=== PATIENT | male | born 1990 | race Caucasian/White ===

== ENCOUNTER 2020-04-10 09:13 | Emergency (ER) | payer OTHER, MEDICAID, SELFPAY ==
[2020-04-10] VITALS (14 sets, daily range): BP systolic 116–139; BP diastolic 70–93; PULSE 72–108; RESP 16–18; TEMP 36.4; O2SAT 97–100; BMI 30.7
--- NOTE | 2020-04-10 09:35 | ED_ITS ---
HPI - General Adult General Chief complaint: Neuro Symptoms/Deficit Stated complaint: trouble staying awake/thinking Time Seen by Provider: 04/10/20 09:27 History of Present Illness HPI narrative: 29-year-old gentleman history of stomach cancer currently being treated for this with Aceruda and has 5 more weeks of treatment to go. He was supposed to go to his cancer treatment this morning at 8:15 a.m. however when his mother woke up she found him slumped over the kitchen sink essentially passed out significantly difficult to arouse and she reports that he just seems he is a bit off notes that he has not been sleeping well significantly more fatigued. Patient is able to give a completely coherent history moving all extremities with normal speech fluency. He does note increased lower extremity edema, multiple bruises in various stages of healing all over his body. No fevers, cough, chills, chest pain, abdominal pain. Notes that he did have quite a bit of blood in his stool which led to his eventual stomach cancer diagnosis. Notes over the last number of days he has had increasingly black stool but had not really thought anything of it. Of note he has an area on the dorsum of the right wrist that is slightly red and warm from a prior IV start site. He states that it has improved significantly over the last couple of days and is not tender nor fluctuant with palpation today Related Data Previous Rx's Medication Instructions Recorded Spacer: Inhaler Spacer Device applic #1 08/13/17 albuterol sulfate [Ventolin HFA] 0 puff INH Q4HP PRN #1 ea 08/13/17 Allergies Allergy/AdvReac Type Severity Reaction Status Date / Time Penicillins [PENICILLINS] Allergy Unknown Unverified 10/20/17 11:53 Review of Systems Review of Systems Narrative: Pertinent positive and negative findings as per HPI Remainder of review of systems is otherwise unremarkable for ENT: No sore throat, neck pain, ear pain GI: Nausea, vomiting, diarrhea, : Dysuria, hematuria, flank pain MS: Muscle weakness, numbness, joint swelling or warmth Skin: Rashes, nonhealing lesions Patient History Medical History (Updated 04/10/20 @ 14:09 by Adele Danielle MD) Stomach cancer (Acute) Exam Narrative Exam Narrative: General: Healthy appearing, in no acute distress. Able to give a complete and coherent history. Well-nourished well-developed HEENT: Moist mucous membranes, normal sclera with reactive and midposition pupils, Neck: No JVD, supple, no adenopathy and no posterior tenderness Respiratory: Lungs are clear to auscultation, no wheezing no rales no rhonchi. Full and symmetrical air movement Cardiac: Tachycardic but Regular rate and rhythm no murmurs no bruits Abdomen: Soft nontender good bowel tones, no flank pain Skin: Warm and dry, slightly pale, small bruises in various stages of healing over his entire body Neurologic: Slightly slowed however Grossly neurologically intact with no obvious asymmetries or abnormalities Extremities: No trauma, bilateral lower extremity edema to the mid calf Psych: Cooperative, appropriate insight and affect Rectal exam: Minimal stool in the vault that that is there is guaiac negative Initial Vital Signs Initial Vital Signs: Vital Signs Pulse Oximetry 100 04/10/20 09:18 Course Orders Ordered: ED Orders 04/10/20 10:01 CT head/brain wo con Stat XR chest 1V Stat Blood Culture Stat Urinalysis and Microscopic Stat 04/10/20 10:49 XR chest for PICC 1V Stat 04/10/20 11:05 Complete Blood Count AUTO DIFF Stat Comprehensive Metabolic Panel Stat Lactate (Lactic Acid) Stat NT-proBNP (BNP-Adult 18+) Stat Procalcitonin Stat 04/10/20 11:12 Type and Screen Stat Vital Signs Vital signs: Vital Signs - 8 hr 04/10/20 09:18 04/10/20 09:19 04/10/20 09:30 Temperature Pulse Rate 107 H 94 H Respiratory Rate 18 Blood Pressure 133/93 H 133/77 Pulse Oximetry 100 99 97 04/10/20 09:43 04/10/20 10:00 04/10/20 10:30 Temperature 97.5 F L Pulse Rate 108 H 89 82 Respiratory Rate 16 18 Blood Pressure 133/93 H 139/71 Pulse Oximetry 99 04/10/20 11:00 04/10/20 11:08 04/10/20 11:30 Temperature Pulse Rate 91 H 100 H 76 Respiratory Rate Blood Pressure 124/70 Pulse Oximetry 100 98 04/10/20 12:00 04/10/20 12:30 04/10/20 13:00 Temperature Pulse Rate 72 79 81 Respiratory Rate Blood Pressure Pulse Oximetry 100 100 100 04/10/20 13:30 04/10/20 13:57 Temperature Pulse Rate 83 81 Respiratory Rate Blood Pressure 116/82 Pulse Oximetry 99 Medical Decision Making Lab Data Lab results reviewed: Yes I reviewed the patient's lab results. Result diagrams: 04/10/20 11:05 04/10/20 11:05 Labs: Lab Results 04/10/20 04/10/20 04/10/20 Range/Units 11:05 11:05 11:05 WBC 7.2 (4.5-11.0) X10^3/uL RBC 4.27 L (4.5-5.9) X10^6/uL Hgb 12.3 L (13.5-17.5) g/dL Hct 36.6 L (41-53) % MCV 85.6 (80-100) fL MCH 28.8 (26-34) PG MCHC 33.6 (30-36) % RDW 14.5 (11.6-14.8) % Plt Count 190 (150-400) X10^3/uL Neut % (Auto) 48.1 L (50-75) % Lymph % (Auto) 31.2 (25-40) % Lipscomb % (Auto) 11.5 (3-14) % Eos % (Auto) 8.5 H (2-4) % Baso % (Auto) 0.7 (0-2) % Neut # (Auto) 3500 (2837-4512) /uL Lymph # (Auto) 2300 (6700-1523) /uL Lipscomb # (Auto) 800 (0-900) /uL Eos # (Auto) 600 H (0-450) /uL Baso # (Auto) 100 (0-100) /uL Sodium 140 (137-145) mmol/L Potassium 3.3 L (3.4-5.1) mmol/L Chloride 103 (98-107) mmol/L Carbon Dioxide 30 (22-32) mmol/L BUN 14 (9-20) mg/dL Creatinine 0.70 (0.66-1.25) mg/dL Estimated GFR > 60.0 (>60) mL/min BUN/Creatinine Ratio 20.0 (6-22) Glucose 92 (70-100) mg/dL Lactate (0.7-2.1) mmol/L Calcium 8.9 (8.4-10.2) mg/dL Total Bilirubin 0.5 (0.2-1.3) mg/dL AST 27 (17-59) IU/L ALT 20 (<50) IU/L Alkaline Phosphatase 87 (38-126) U/L NT-Pro-B Natriuret Pep 44 (<125) pg/mL Total Protein 7.4 (6.3-8.2) g/dL Albumin 4.0 (3.5-5.0) g/dL Globulin 3.4 (1.7-4.1) g/dL Albumin/Globulin Ratio 1.2 (1.0-2.8) Procalcitonin < 0.05 (<0.5) ng/mL Blood Type Antibody Screen 04/10/20 04/10/20 Range/Units 11:05 11:12 WBC (4.5-11.0) X10^3/uL RBC (4.5-5.9) X10^6/uL Hgb (13.5-17.5) g/dL Hct (41-53) % MCV (80-100) fL MCH (26-34) PG MCHC (30-36) % RDW (11.6-14.8) % Plt Count (150-400) X10^3/uL Neut % (Auto) (50-75) % Lymph % (Auto) (25-40) % Lipscomb % (Auto) (3-14) % Eos % (Auto) (2-4) % Baso % (Auto) (0-2) % Neut # (Auto) (0367-5204) /uL Lymph # (Auto) (0692-4241) /uL Lipscomb # (Auto) (0-900) /uL Eos # (Auto) (0-450) /uL Baso # (Auto) (0-100) /uL Sodium (137-145) mmol/L Potassium (3.4-5.1) mmol/L Chloride (98-107) mmol/L Carbon Dioxide (22-32) mmol/L BUN (9-20) mg/dL Creatinine (0.66-1.25) mg/dL Estimated GFR (>60) mL/min BUN/Creatinine Ratio (6-22) Glucose (70-100) mg/dL Lactate 1.1 (0.7-2.1) mmol/L Calcium (8.4-10.2) mg/dL Total Bilirubin (0.2-1.3) mg/dL AST (17-59) IU/L ALT (<50) IU/L Alkaline Phosphatase (38-126) U/L NT-Pro-B Natriuret Pep (<125) pg/mL Total Protein (6.3-8.2) g/dL Albumin (3.5-5.0) g/dL Globulin (1.7-4.1) g/dL Albumin/Globulin Ratio (1.0-2.8) Procalcitonin (<0.5) ng/mL Blood Type O Positive Antibody Screen Negative Imaging Data Chest x-ray: Radiologist's Impression: FINDINGS: Surgical changes and devices: None. Lungs and pleura: Lungs are clear. No pleural effusions or pneumothorax. Mediastinum: Mediastinal contours appear normal. Heart size is normal. Bones and chest wall: No suspicious bony lesions. Overlying soft tissues appear unremarkable. IMPRESSION: No acute cardiopulmonary abnormality. Dictated by: Keven Heck M.D. on 04/10/2020 at 10:25 repeat post PICC line: FINDINGS: PICC was placed by the intravenous therapy team from the right side. Fluoroscopic spot film demonstrates the tip of PICC projecting to the area of inferior aspect of the superior vena cava, less than 1 cm above the cavoatrial junction. It is recorded that the PICC line was withdrawn 1 cm after this image was taken, before securing it in place. IMPRESSION: Tip of PICC projects to the area of inferior aspect of the superior vena cava. Dictated by: Michael Rogers M.D. on 04/10/2020 at 10:06 CT scan - head: Radiologist's Impression: FINDINGS: Image quality: Excellent. CSF spaces: Basal cisterns are patent. No extra-axial fluid collections. Ventricles are normal in size and shape. Brain: No midline shift. No acute intracranial hemorrhage or mass effect. Wilkins-white matter interface is normal. Skull and face: Calvarium and visualized facial bones are intact, without jimenez spicious lesions. Sinuses: Visualized sinuses and mastoids are clear. IMPRESSION: No acute intracranial process. Dictated by: Keven Heck M.D. on 04/10/2020 at 10:21 ECG Data Attestation: I personally reviewed and interpreted this ECG as follows: Interpretation: Sinus rhythm at a rate of 82 Normal intervals normal axis Mild lateral ST depression, leads V4 V5 V6 MDM Narrative Medical decision making narrative: Gentleman presents with excessive fatigue today. He is in the middle of chemotherapy for stomach cancer apparently does his chemotherapy at our infusion clinic however we have no records available in [facility] and have been unsuccessful in getting records from other facilities. At this point there is no evidence of acute infection or sepsis. No stroke no brain lesions. He denies recreational drugs that may be causing excessive sleepiness. He does not have pinpoint pupils to suggest narcotic overdose nor has he been prescribed benzodiazepines. He has almost no peripheral vessel access. Given that he is mid chemotherapy, I ask why he had not had a port or at least a PICC line placed. He did not have an answer for this. As we were unable to obtain peripheral IV access we did place a PICC line in anticipation of future needs as well as immediate needs. Uncertain etiology for the excessive fatigue but at this point there does not appear to be a life threatening Neurologic, infectious, hematologic or neoplastic explanation for the findings today. He is safe for home discharge and can follow-up with his oncology team as previously scheduled. He says his oncologist is Dr Antonia Dillard with [facility]. Phone call to cancer care center at and spoke with her nurse and there is no record of him in the [facility]. We have no notes, documentation or previous history of him being part of the [facility] system. I have confirmed appropriate name spelling and date with his lease purchase driver's license. Will continue to do a bit of research. We have asked him to contact any of the providers with whom he has arranged care. Says he has left messages but can not get through to anybody. We have a call to [facility] to see if they have any record of this gentleman ever. At this point he is getting more agitated and wants to leave the emergency room very appropriately. Explained to him that we can not let him leave with a PICC line in place without care plan and follow-up scheduled and discussion with his oncology care team. As we can not find anybody who has ever seem to have met this gentleman before or having a bit of difficulty Patient continues to want to leave as were waiting for phone calls to be returned. PICC line will be removed and he will be allowed to leave. Continued have absolutely no verification of any medical intervention specifically no cancer interventions or routinely scheduled chemotherapy. Discharge Plan Departure Patient Disposition: Home Clinical Impression: Altered mental status Qualifiers: Altered mental status type: unspecified Qualified Code(s): R41.82 - Altered mental status, unspecified Instructions: DI for Altered Mental Status Activity Restrictions/Additional Instructions: Thank you for coming in today I do not have a life-threatening explanation for your altered mental status. Blood work was quite reassuring. With your description of your stomach cancer and the chemotherapy you have been receiving and are difficulty in any type of IV access we did place a PICC line. Unfortunately, were unable to confirm any of your cancer providers at [facility], our cancer center for [facility]. Without anticipated and scheduled care of this PICC line we are not able to leave it in. I wish you the best Prescriptions: No Action albuterol sulfate [Ventolin HFA] 90 MCG/PUFF HFA aerosol inhaler 0 puff INH Q4HP PRNQty: 1 RF: 0 Spacer: Inhaler Spacer Device Qty: 1 RF: 0
--- NOTE | 2020-04-10 10:01 | DI.RAD.S_ITS ---
PROCEDURE: XR CHEST 1V INDICATIONS: altered mental status TECHNIQUE: One view of the chest was acquired. COMPARISON: [facility], , CHEST 2 VIEW, 08/13/2017, 9:11. FINDINGS: Surgical changes and devices: None. Lungs and pleura: Lungs are clear. No pleural effusions or pneumothorax. Mediastinum: Mediastinal contours appear normal. Heart size is normal. Bones and chest wall: No suspicious bony lesions. Overlying soft tissues appear unremarkable. IMPRESSION: No acute cardiopulmonary abnormality. Dictated by: Keven Heck M.D. on 04/10/2020 at 10:25 Approved by: Keven Heck M.D. on 04/10/2020 at 10:26
--- NOTE | 2020-04-10 10:01 | DI.CT.S_ITS ---
PROCEDURE: CT HEAD/BRAIN WO CON INDICATIONS: altered mental status TECHNIQUE: Noncontrast 4.5 mm thick angled axial sections acquired from the foramen magnum to the vertex, with coronal and sagittal reformats. For radiation dose reduction, the following was used: automated exposure control, adjustment of mA and/or kV according to patient size. COMPARISON: [facility], CT, HEAD WITHOUT CONTRAST, 11/05/2014, 17:14. [facility], CT, HEAD WITHOUT CONTRAST, 04/15/2007, 23:29. FINDINGS: Image quality: Excellent. CSF spaces: Basal cisterns are patent. No extra-axial fluid collections. Ventricles are normal in size and shape. Brain: No midline shift. No acute intracranial hemorrhage or mass effect. Wilkins-white matter interface is normal. Skull and face: Calvarium and visualized facial bones are intact, without suspicious lesions. Sinuses: Visualized sinuses and mastoids are clear. IMPRESSION: No acute intracranial process. Dictated by: Keven Heck M.D. on 04/10/2020 at 10:21 Approved by: Keven Heck M.D. on 04/10/2020 at 10:25
--- NOTE | 2020-04-10 10:49 | DI.RAD.S_ITS ---
PROCEDURE: XR CHEST FOR PICC 1V INDICATIONS: line placement COMPARISON: [facility], CR, XR CHEST 1V, 04/10/2020, 10:06. FINDINGS: PICC was placed by the intravenous therapy team from the right side. Fluoroscopic spot film demonstrates the tip of PICC projecting to the area of inferior aspect of the superior vena cava, less than 1 cm above the cavoatrial junction. It is recorded that the PICC line was withdrawn 1 cm after this image was taken, before securing it in place. IMPRESSION: Tip of PICC projects to the area of inferior aspect of the superior vena cava. Dictated by: Michael Rogers M.D. on 04/10/2020 at 10:06 Approved by: Michael Rogers M.D. on 04/10/2020 at 10:07
--- NOTE | 2020-04-10 10:54 | PC.NURSE ---
1000: Letty RN in room for PICC placement. 1054: attempting to obtain records from [facility] after confirming no appt was scheduled for pt at 0815 with [facility] or outpatient infusion as pt stated.
--- NOTE | 2020-04-10 11:18 | PC.NURSE ---
PICC line inserted and confirmed by XR. labs drawn and sent to lab. awaiting call back for record requests from [facility].
--- NOTE | 2020-04-10 11:20 | PC.NURSE ---
Mother reports finding pt this morning at the sink slumped over and unarousable, pt has been increasingly more drowsy and she thinks he was asleep. states he may have fallen when letting the dog out but she did not witness a fall and the pt does not remember. Pt AAOx2 with confusion. Drowsy and easily arousable to speech. speaking in clear sentences. appears to have dependent edema without pitting. bruises all over arms from infusions and PICC inserted per order. Lungs clear, 82 NSR on cardiac monitoring. Guaic negative per MD. NAD at this time. resting on stretcher with mother at bedside.
[2020-04-10 11:21] LABS: Add Manual Diff / Slide Review NO; Basophils Absolute Auto 100 /uL (0-100); Basophils Percent Auto 0.7 % (0-2); Eosinophils Absolute Auto 600 /uL (0-450); Eosinophils Percent Auto 8.5 % (2-4); Hematocrit 36.6 % (41-53); Hemoglobin 12.3 g/dL (13.5-17.5); Lymphocytes Absolute Auto 2300 /uL (1100-4500); Lymphocytes Percent Auto 31.2 % (25-40); Mean Corpuscular HGB Conc 33.6 % (30-36); Mean Corpuscular Hemoglobin 28.8 PG (26-34); Mean Corpuscular Volume 85.6 fL (80-100); Monocytes Absolute Auto 800 /uL (0-900); Monocytes Percent Auto 11.5 % (3-14); Neutrophils Absolute Auto 3500 /uL (1500-7000); Neutrophils Percent Auto 48.1 % (50-75); Platelet Count 190 X10^3/uL (150-400); Red Blood Cell Count 4.27 X10^6/uL (4.5-5.9); Red Cell Distribution Width 14.5 % (11.6-14.8); White Blood Cell Count 7.2 X10^3/uL (4.5-11.0)
[2020-04-10 11:32] LABS: Alanine Aminotransferase 20 IU/L (<50); Albumin Globulin Ratio 1.2 (1.0-2.8); Alkaline Phosphatase 87 U/L (38-126); Aspartate Aminotransferase 27 IU/L (17-59); Bilirubin Total 0.5 mg/dL (0.2-1.3); Blood Urea Nitrogen 14 mg/dL (9-20); Calcium 8.9 mg/dL (8.4-10.2); Carbon Dioxide 30 mmol/L (22-32); Chloride 103 mmol/L (98-107); Estimated Glomerular Filt Rate > 60.0 mL/min (>60); Globulin 3.4 g/dL (1.7-4.1); Glucose 92 mg/dL (70-100); HEMOLYSIS < 15 (0-50); Potassium 3.3 mmol/L (3.4-5.1); Sodium 140 mmol/L (137-145); Total Protein 7.4 g/dL (6.3-8.2)
[2020-04-10 11:33] LABS: Lactate (Lactic Acid) 1.1 mmol/L (0.7-2.1)
[2020-04-10 11:41] LABS: NT-proBNP (BNP-Adult 18+) 44 pg/mL (<125)
[2020-04-10 12:09] LABS: Procalcitonin < 0.05 ng/mL (<0.5)
--- NOTE | 2020-04-10 14:09 | PC.NURSE ---
PICC line d/c according to policy / procedure. Pt tolerated well. Denies chest pain / shortness of breath. Catheter intact. No bleeding. No pain.
== END 2020-04-10 14:11 | disposition home or self-care (01) ==
PROVIDERS: Emergency Provider Emergency Medicine
DX: R41.82 Altered mental status, unspecified (principal); R53.83 Other fatigue
CPT/HCPCS: 36415; 36569; 70450; 71045; 80053; 83605; 83880; 84145; 85025; 86850; 86900; 86901; 87040; 93005; 99284

== ENCOUNTER → 2020-10-31 15:41 | Outpatient (CLI) | payer OTHER, MEDICAID, SELFPAY ==
[2020-10-31] MEDS: COVID-19 VACC #1, MRNA(MOD) 100 MCG/0.5 ML VIAL IM (15:53)
== END ==
PROVIDERS: Visit Provider Internal Medicine
DX: Z23 Encounter for immunization (principal)
CPT/HCPCS: 0011A; 91301

== ENCOUNTER → 2020-11-28 14:46 | Outpatient (CLI) | payer MEDICAID, SELFPAY ==
[2020-11-28] MEDS: COVID-19 VACC #2, MRNA(MOD) 100 MCG/0.5 ML VIAL IM (14:49)
== END ==
PROVIDERS: Visit Provider Internal Medicine
DX: Z23 Encounter for immunization (principal)
CPT/HCPCS: 0012A; 91301

== ENCOUNTER 2022-11-10 08:49 | Emergency (ER) | payer OTHER, SELFPAY ==
[2022-11-10 09:02] VITALS: BP 135/84; PULSE 79; RESP 15; TEMP 36.8; O2SAT 98
--- NOTE | 2022-11-10 09:12 | ED.SKABFB ---
HPI - Skin/Abscess/Foreign Bdy General Chief complaint: Skin/Abscess/Foreign Body Stated complaint: Bad rash on both feet. Time Seen by Provider: 11/10/22 09:05 Source: patient Mode of arrival: Ambulatory Limitations: no limitations History of Present Illness HPI narrative: Patient is a 32-year-old male who is here for evaluation of a rash on both of his feet. He states he has been dealing with this issue for many years. He is seen Dermatology. He has had biopsies. He occasionally gets put on steroid cream. He states there has been no specific cause of his symptoms. Over the past couple days he is noticed the rash becoming larger and flaring. He is tried some Epson salts at home without any improvement. He states that it does hurt quite a bit. Related Data Previous Rx's Medication Instructions Recorded Spacer: Inhaler Spacer Device applic ##1 08/13/17 albuterol sulfate 90 mcg/actuation 0 puff INH Q4HP PRN #1 ea 08/13/17 aerosol inhaler (Ventolin HFA) hydrocortisone valerate 0.2 % 1 applic topical BID-TID PRN rash 11/10/22 topical ointment #15 grams prednisone 20 mg tablet 20 mg PO DAILY 7 days #7 tabs 11/10/22 tramadol 50 mg tablet 50 mg PO Q8H PRN pain #10 tabs 11/10/22 Allergies Allergy/AdvReac Type Severity Reaction Status Date / Time Penicillins [PENICILLINS] Allergy Unknown Verified 11/10/22 09:07 Review of Systems Constitutional Constitutional: Reports system reviewed and no additional complaints, except as documented Musculoskeletal Musculoskeletal: Reports system reviewed and no additional complaints, except as documented Integumentary/Breasts Skin/Breast: Reports system reviewed and no additional complaints, except as documented Patient History Medical History Stomach cancer Social History Smoking Status: Unknown if ever smoked Smoking Status: Unknown if ever smoked alcohol intake frequency: holidays/special occasions only Substance Use Type: does not use Exam Initial Vital Signs Initial Vital Signs: Vital Signs Temperature 98.3 F 11/10/22 09:02 Pulse Rate 79 11/10/22 09:02 Respiratory Rate 15 11/10/22 09:02 Blood Pressure 135/84 11/10/22 09:02 Pulse Oximetry 98 11/10/22 09:02 Oxygen Delivery Method Room Air 11/10/22 09:02 Const General: cooperative and comfortable [facility] Head: normal to inspection and normocephalic Skin Other: Patient does have a rash located on the dorsum of his feet and around his ankles. It does not involve the soles of his feet. Does not extend above the distal 1/3 of his legs. The right seems to be worse in the left. It does appear that 1 time to worsen blisters but none now. There is some surrounding erythema but it appears to be more of a reactionary rather than cellulitic. Extrem Other: Swollen and tender to touch of bilateral ankles. Course Vital Signs Vital signs: Vital Signs - 8 hr 11/10/22 09:02 Temperature 98.3 F Pulse Rate 79 Respiratory Rate 15 Blood Pressure 135/84 Pulse Oximetry 98 Oxygen Delivery Method Room Air MDM - Skin/Abscess/Foreign Bdy MDM Narrative Medical decision making narrative: Patient does have a rash on both of his ankles. He states he is had this since he was in high school. It has been evaluated multiple times by dermatology without any definitive diagnosis. He states that it sometimes flares. When this happens he gets put on steroid cream which does seem to help his symptoms. There does not appear to be any supra infection. I do suspect that this is a reaction and not an infection. I will give him a prescription for steroid cream. He was also given a prescription for oral steroids that he will hold on taking unless his symptoms worsen. He was given return precautions and follow-up instructions. He expressed understanding and agreement. Discharge Plan Departure Patient Disposition: Home Clinical Impression: Rash Instructions: DI for Rash Activity Restrictions/Additional Instructions: I do recommend you use the steroid cream as directed. Hold on the oral steroids and only take these if your symptoms are not improving or worsening. I do recommend that you follow-up with your primary doctor in dermatology. Return to the emergency department for new or worsening symptoms. Prescriptions: New tramadol 50 mg tablet 50 mg PO Q8H PRN (Reason: pain) Qty: 10 0RF prednisone 20 mg tablet 20 mg PO DAILY 7 Days Qty: 7 0RF hydrocortisone valerate 0.2 % ointment 1 applic topical BID-TID PRN (Reason: rash) Qty: 15 3RF No Action albuterol sulfate [Ventolin HFA] 90 MCG/PUFF HFA aerosol inhaler 0 puff INH Q4HP PRNQty: 1 0RF Spacer: Inhaler Spacer Device Qty: 1 0RF Referrals: Nishi Tucker FNP-C [Primary Care Provider] - Stand Alone Forms: Patient Portal/API
== END 2022-11-10 09:28 | disposition home or self-care (01) ==
PROVIDERS: Emergency Provider Emergency Medicine; PCP Nurse Practitioner Family
DX: R21 Rash and other nonspecific skin eruption (principal)
CPT/HCPCS: 99281

== ENCOUNTER 2024-06-18 12:38 | Emergency (ER) | payer OTHER, MEDICAID, SELFPAY ==
[2024-06-18 13:00] VITALS: BP 156/107; PULSE 105; RESP 16; TEMP 36.9; O2SAT 98; BMI 27.5
--- NOTE | 2024-06-18 13:14 | ED.EXTPRO ---
HPI - Extremity Problem <Hemalatha Latif PA-C - Last Filed: 06/18/24 14:14> General Chief complaint: Extremity Problem,Nontraumatic Stated complaint: Painful Red Spot Spreading Up L Leg Time Seen by Provider: 06/18/24 13:14 History of Present Illness HPI Narrative: Mr. Mooney is a very pleasant 33-year-old male with a past medical history bilateral dorsal feet rash who presents to the emergency department for left lower leg redness, swelling, rash x3 days. Patient states that 3 days ago he developed a red spotting rash underneath his left sock/work boot that was mildly itchy. The rash started to spread up the left lower leg and he also had intermittent focal pain on his medial left thigh. The rash is not getting any better which prompted his ER arrival. Reports that he had cellulitis a few years ago which was his biggest concern. He denies chest pain, shortness of breath, history of VTE, prescription medication use, direct trauma to the left leg, recent travel, fevers, chills, abdominal pain, dysuria, groin pain, flu symptoms. He does work outside and may have come into contact with possible bug bite, in addition his chronic foot rash has been extremely itchy. His foot rash does respond to steroid cream. Related Data Previous Rx's Medication Instructions Recorded Spacer: Inhaler Spacer Device applic ##1 08/13/17 albuterol sulfate 90 mcg/actuation 0 puff INH Q4HP PRN #1 ea 08/13/17 aerosol inhaler (Ventolin HFA) hydrocortisone valerate 0.2 % 1 applic topical BID-TID PRN rash 11/10/22 topical ointment #15 grams tramadol 50 mg tablet 50 mg PO Q8H PRN pain #10 tabs 11/10/22 cephalexin 500 mg capsule 500 mg PO QID 7 days #28 caps 06/18/24 Allergies Allergy/AdvReac Type Severity Reaction Status Date / Time Penicillins [PENICILLINS] Allergy Unknown Verified 11/10/22 09:07 Review of Systems <Hemalatha Latif PA-C - Last Filed: 06/18/24 14:14> Review of Systems ROS Unobtainable: All systems reviewed & are unremarkable except as noted in HPI and below Patient History <Hemalatha Latif PA-C - Last Filed: 06/18/24 14:14> Medical History Stomach cancer Social History Smoking Status: Unknown if ever smoked Smoking Status: Unknown if ever smoked alcohol intake frequency: holidays/special occasions only Exam <Hemalatha Latif PA-C - Last Filed: 06/18/24 14:14> Narrative Exam Narrative: GENERAL: 33 year old patient appears stated age. Well-developed patient, in no acute distress. HEAD: Atraumatic. Normocephalic. EYES: Extraocular motions intact. No scleral icterus. No injection or drainage. ENT: Nose without bleeding, purulent drainage. NECK: Trachea midline. Cervical ROM intact. CARDIOVASCULAR: Regular rate and rhythm. RESPIRATORY: ?Nonlabored respirations. ?Speaking in clear, full sentences. ?Clear to auscultation. Breath sounds equal bilaterally. No wheezes, rales, or rhonchi. ? EXTREMITIES: Chronic dry, cracked skin on bilateral dorsal feet. Maculopapular blachable rash on the left lower extremity in the distribution of the patient's sock and also on the anterior left hester. No streaking erythema. Mild nonpitting edema of the left lower leg compared to the right. No grossly increased warmth. Subjective pain on medial thigh with no tenderness or skin abnormalities. Bilateral strong and equal DP and PT pulses with brisk capillary refill on the toes. Mild palpable lymph nodes in L inguinal fold with no tenderness or erythema. NEURO: AOx3. ?Clear speech. ?Moves all 4 extremities appropriately. Initial Vital Signs Initial Vital Signs: Vital Signs Temperature 98.5 F 06/18/24 13:00 Pulse Rate 105 H 06/18/24 13:00 Respiratory Rate 16 06/18/24 13:00 Blood Pressure 156/107 H 06/18/24 13:00 Pulse Oximetry 98 06/18/24 13:00 Oxygen Delivery Method Room Air 06/18/24 13:00 <Rachel Zhou DO - Last Filed: 06/23/24 08:39> Initial Vital Signs Initial Vital Signs: Vital Signs Temperature 98.5 F 06/18/24 13:00 Pulse Rate 105 H 06/18/24 13:00 Respiratory Rate 16 06/18/24 13:00 Blood Pressure 156/107 H 06/18/24 13:00 Pulse Oximetry 98 06/18/24 13:00 Oxygen Delivery Method Room Air 06/18/24 13:00 Course <Hemalatha Latif PA-C - Last Filed: 06/18/24 14:14> Orders Ordered: ED Orders 06/18/24 13:21 US periph venous low extrem lt Stat Vital Signs Vital signs: Vital Signs - 8 hr 06/18/24 13:00 06/18/24 13:46 Temperature 98.5 F Pulse Rate 105 H 95 H Respiratory Rate 16 16 Blood Pressure 156/107 H 136/79 Pulse Oximetry 98 99 Oxygen Delivery Method Room Air Room Air <Rachel Zhou DO - Last Filed: 06/23/24 08:39> Orders Ordered: ED Orders 06/18/24 13:21 perip venous low extrem lt Stat Vital Signs Vital signs: Vital Signs - 8 hr 06/18/24 13:00 06/18/24 13:46 Temperature 98.5 F Pulse Rate 105 H 95 H Respiratory Rate 16 16 Blood Pressure 156/107 H 136/79 Pulse Oximetry 98 99 Oxygen Delivery Method Room Air Room Air MDM - Extremity (Nontraumatic) <Hemalatha Latif PA-C - Last Filed: 06/18/24 14:14> Imaging Data Left Lower Extremity Venous US: Radiologist's Impression: PROCEDURE: US PERIPH VENOUS LOW EXTREM LT INDICATIONS: Pain in left mid thigh TECHNIQUE: Real-time imaging, as well as color and pulse Doppler interrogation, were performed of the lower extremity deep veins from the inguinal ligament to the popliteal fossa, with documentation of the visualized calf veins. COMPARISON: None. FINDINGS: The common femoral, femoral, popliteal, and the visualized calf veins are normally compressible, and free of intraluminal thrombus. Color and pulse Doppler demonstrate normal phasic intraluminal flow. There is normal augmentation response to distal compression maneuver. IMPRESSION: No findings of lower extremity deep venous thrombosis. MDM Narrative Medical decision making narrative: 33-year-old male with a past medical history bilateral dorsal feet rash who presents to the emergency department for left lower leg redness, swelling, rash x3 days. Differential diagnosis includes but is not limited to cellulitis, DVT, insect bite, allergic dermatitis, eczema, etc. On exam the patient is in no acute distress, nontoxic appearing, afebrile. HR in triage 105, decreased to 80s during my exam. On his left lower extremity he has a maculopapular rash that is blanchable. He has mild swelling of the left lower extremity compared to the right. Strong equal bilateral pulses. Clinical exam most consistent with early developing cellulitis secondary to his chronic dry skin versus insect bites however we will obtain ultrasound to rule out underlying DVT. Patient declines pain medication. Left lower leg venous ultrasound negative for lower extremity deep venous thrombosis. I do think bug bites may have precipitated his symptoms so I advised him to use daily allergy pill such as Zyrtec if needed for itching. We will treat patient left lower extremity cellulitis with cephalexin 500 mg 4 times a day x7 days. He has an allergy to penicillins as a baby, reports rash, states he is taken cephalexin in the past without issue. Discussed signs and symptoms to return to the ER for. Patient verbalized understanding of all information he is stable for discharge, antibiotics sent to pharmacy of choice. Discharge Plan Departure Patient Disposition: Home Clinical Impression: Rash Cellulitis Qualifiers: Site of cellulitis: extremity Site of cellulitis of extremity: lower extremity Laterality: left Qualified Code(s): L03.116 - Cellulitis of left lower limb Instructions: DI for Cellulitis -- Adult Activity Restrictions/Additional Instructions: Dear Mr. Mooney, Your diagnosis today is skin infection of the left lower leg. We are treating you with antibiotics that you need to take 4 times a day for the next week. Complete the full dose of antibiotics. Keep the skin on your left lower extremity clean, dry. Keep dry skin on the foot or broken skin cover with antibiotic ointment such as bacitracin. Please take Ibuprofen (Motrin/Advil) or Acetaminophen (Tylenol) for pain. These are available over the counter. You may take Ibuprofen 600 mg every 8 hours with food for pain. You may also take Acetaminophen 650 mg every 4-6 hours for pain. Do not exceed 3000 mg of Tylenol a day as this can cause liver damage. Do not drink alcohol with either of these medications. Return to the ER if you develop fevers, chills, redness streaking up the leg, worsening of the rash, any other concerns. Please follow up with your primary care doctor within the next 2-3 days for ER follow-up. (If you do not have a PCP you can call [phone]. ?to schedule an appointment with an [facility] Primary Care Provider) IF YOU DEVELOP ANY NEW OR WORSENING SYMPTOMS, RETURN TO THE ER! Please read the attached instructions, they highlight more specific treatments and interventions for you at home. Thank you for letting me participate in your care, Hemalatha Latif PA-C Prescriptions: New cephalexin 500 mg capsule 500 mg PO QID 7 Days Qty: 28 0RF No Action albuterol sulfate [Ventolin HFA] 90 MCG/PUFF HFA aerosol inhaler 0 puff INH Q4HP PRNQty: 1 0RF Spacer: Inhaler Spacer Device Qty: 1 0RF tramadol 50 mg tablet 50 mg PO Q8H PRN (Reason: pain) Qty: 10 0RF hydrocortisone valerate 0.2 % ointment 1 applic topical BID-TID PRN (Reason: rash) Qty: 15 3RF Referrals: Nishi Tucker FNP-C [Primary Care Provider] - Stand Alone Forms: Patient Portal/API/Survey ED Sign-out <Rachel Zhou DO - Last Filed: 06/23/24 08:39> Cosign ED Attending Luther Attestation: I was immediately available in the department for consultation.
--- NOTE | 2024-06-18 13:21 | DI.US.S_ITS ---
PROCEDURE: US PERIPH VENOUS LOW EXTREM LT INDICATIONS: Pain in left mid thigh TECHNIQUE: Real-time imaging, as well as color and pulse Doppler interrogation, were performed of the lower extremity deep veins from the inguinal ligament to the popliteal fossa, with documentation of the visualized calf veins. COMPARISON: None. FINDINGS: The common femoral, femoral, popliteal, and the visualized calf veins are normally compressible, and free of intraluminal thrombus. Color and pulse Doppler demonstrate normal phasic intraluminal flow. There is normal augmentation response to distal compression maneuver. IMPRESSION: No findings of lower extremity deep venous thrombosis. Approved by: Joo Narvaez M.D. on 06/18/2024 at 12:51
[2024-06-18 13:46] VITALS: BP 136/79; PULSE 95; RESP 16; O2SAT 99
[2024-06-18 14:13] VITALS: PULSE 80; RESP 16; O2SAT 99
== END 2024-06-18 14:13 | disposition home or self-care (01) ==
PROVIDERS: Emergency Provider Physician Assistant; PCP Nurse Practitioner Family
DX: R21 Rash and other nonspecific skin eruption (principal); L03.116 Cellulitis of left lower limb
CPT/HCPCS: 93971; 99281; 99283